=== PATIENT | female | born 1975 | race Caucasian/White ===

== ENCOUNTER → 2017-06-20 | Outpatient (CLI) | payer BC ==
[~2017-06-20] MED LIST: L.AC1CAP6 PO; None at this Time
[2017-06-20 15:35] LABS: HEMATOCRIT 41.1 % (34.6-47.8); HEMOGLOBIN 13.8 g/dL (11.7-16.4); WHITE BLOOD COUNT 7.9 x10^3/uL (3.4-10)
== END | disposition home or self-care (01) ==
LOC: STAR 14:38
PROVIDERS: ATTEND Student in an Organized Health Care Education/Training Program
DX: Z01.818 Encounter for other preprocedural examination (principal); N93.8 Other specified abnormal uterine and vaginal bleeding
CPT/HCPCS: 36415; 85025

== ENCOUNTER 2017-06-27 08:05 | Inpatient (IN) | payer BC ==
[2017-06-20 15:11] VITALS: BP 144/91
[~2017-06-27] VITALS: Ht 172.7 cm; Wt 105.7 kg
[2017-06-27] MEDS ORDERED: LACTATED RINGERS 1,000 ML IV SCH (08:32)
[2017-06-27] MEDS ORDERED: LIDOCAINE 1%, 2ML ONE (08:43)
[2017-06-27] MEDS ORDERED: MIDAZOLAM 1 MG/ML, 2ML ONE (08:56)
[2017-06-27] MEDS ORDERED: FENTANYL PF 100 MCG/2ML ONE ×2 (08:56)
[2017-06-27] MEDS ORDERED: LIDOCAINE 1%, 2ML SQ PRN (09:00)
[2017-06-27 09:06] LABS: HCG UR OBC PASS
[2017-06-27] MEDS ORDERED: DEXAMETHASONE 4 MG/ML, 1ML ONE (10:17)
[2017-06-27] MEDS ORDERED: CEFAZOLIN 1,000 MG ONE (10:17)
[2017-06-27] MEDS ORDERED: SUCCINYLCHOLINE 20 MG/ML, 10ML ONE (10:17)
[2017-06-27] MEDS ORDERED: ONDANSETRON 2MG/ML, 2ML ONE (10:17)
[2017-06-27] MEDS ORDERED: NEOSTIGMINE 1 MG/ML, 10ML ONE (10:17)
[2017-06-27] MEDS ORDERED: KETOROLAC 30 MG/1 ML ONE (10:17)
[2017-06-27] MEDS ORDERED: PROPOFOL 10 MG/ML, 20ML ONE (10:17)
[2017-06-27] MEDS ORDERED: GLYCOPYRROLATE 0.2MG/1ML ONE (10:17)
[2017-06-27] MEDS ORDERED: ROCURONIUM 10 MG/ML ONE (10:17)
[2017-06-27] MEDS ORDERED: HYDROcodone/APAP 7.5-325MG/15ML UDC PO PRN (10:30)
[2017-06-27] MEDS ORDERED: ACETAMINOPHEN 325 MG TABLET PO PRN (10:30)
[2017-06-27] MEDS ORDERED: EPHEDRINE 50 MG/ML, 1ML IVPush PRN (10:30)
[2017-06-27] MEDS ORDERED: PROMETHAZINE 25 MG/ML, 1ML IV PRN (10:30)
[2017-06-27] MEDS ORDERED: ONDANSETRON 2MG/ML, 2ML IVPush PRN (10:30)
[2017-06-27] MEDS ORDERED: METOPROLOL 1 MG/ML, 5ML IV PRN (10:30)
[2017-06-27] MEDS ORDERED: LABETALOL 5MG/ML, 20ML IV PRN (10:30)
[2017-06-27] MEDS ORDERED: OXYcodone 5 MG/5 ML ORAL.SOL UDC PO PRN (10:30)
[2017-06-27] MEDS ORDERED: ALBUTEROL SULFATE 2.5 MG/3 ML NPPB PRN (10:30)
[2017-06-27] MEDS ORDERED: MIDAZOLAM 1 MG/ML, 2ML IV PRN (10:30)
[2017-06-27] MEDS ORDERED: hydrALAzine 20 MG/ML, 1ML IV PRN (10:30)
[2017-06-27] MEDS ORDERED: MEPERIDINE/PF 25MG/0.5ML IVPush PRN (10:30)
[2017-06-27] MEDS ORDERED: BUPIVACAINE/PF-EPI 0.25% 1:200K INFIL ONE (11:08)
[2017-06-27] MEDS: FENTANYL PF 100 MCG/2ML IV PRN ×2 (14:43→14:59)
[2017-06-27] MEDS ORDERED: PROMETHAZINE 25 MG/ML, 1ML ONE (15:04)
[2017-06-27] MEDS ORDERED: HYDROmorphone 2 MG/ML, 1ML ONE (15:04)
[2017-06-27] MEDS: HYDROmorphone 1 MG/ML, 1ML IV PRN ×4 (15:06→15:38)
[2017-06-27] MEDS ORDERED: morphine SULFATE 10 MG/ML, 1ML IV PRN (16:00)
[2017-06-27] MEDS ORDERED: ONDANSETRON 2MG/ML, 2ML IV PRN (16:00)
[2017-06-27] MEDS: SIMETHICONE 80 MG CHEW TAB PO SCH ×2 (16:37→20:29)
[2017-06-27] MEDS: KETOROLAC 30 MG/1 ML IVPush SCH ×2 (16:38→21:36)
[2017-06-27] MEDS: HYDROcodone/APAP 5/325 TABLET PO PRN ×2 (18:18→22:17)
[2017-06-27 19:31] VITALS: BP 118/73
[2017-06-27] MEDS: DOCUSATE 100 MG CAPSULE PO SCH (20:29)
[2017-06-27] MEDS: LACTATED RINGERS 1,000 ML IV SCH (21:48)
[2017-06-27 23:47] VITALS: BP 116/74
[2017-06-28] MEDS: HYDROcodone/APAP 5/325 TABLET PO PRN ×3 (02:27→13:21)
[2017-06-28] MEDS: KETOROLAC 30 MG/1 ML IVPush SCH ×2 (04:04→09:58)
[2017-06-28] MEDS: LACTATED RINGERS 1,000 ML IV SCH (04:04)
[2017-06-28 04:24] VITALS: BP 125/71
[2017-06-28 08:35] VITALS: BP 105/67
[2017-06-28] MEDS: SIMETHICONE 80 MG CHEW TAB PO SCH (08:47)
[2017-06-28] MEDS: DOCUSATE 100 MG CAPSULE PO SCH (08:47)
[2017-06-28 13:24] VITALS: BP 131/84
== END 2017-06-28 15:15 | disposition home or self-care (01) | DRG 743 ==
LOC: OUT 08:05 → 4NOR 15:51 → OUT 15:54 → 4NOR 15:55 → DCLOUNGE 06-28 15:00
PROVIDERS: ADMIT Student in an Organized Health Care Education/Training Program; ATTEND Student in an Organized Health Care Education/Training Program
PROC: 0UT74ZZ Resection of Bilateral Fallopian Tubes, Percutaneous Endoscopic Approach (ICD-10-PCS; 2017-06-27)
PROC: 0UT94ZZ Resection of Uterus, Percutaneous Endoscopic Approach (ICD-10-PCS; principal; 2017-06-27 10:00)
DX: D25.1 Intramural leiomyoma of uterus (principal); E66.9 Obesity, unspecified; D64.9 Anemia, unspecified; I83.90 Asymptomatic varicose veins of unspecified lower extremity; N84.0 Polyp of corpus uteri; Z68.35 Body mass index [BMI] 35.0-35.9, adult
CPT/HCPCS: 36415; 81025; 86850; 86900; 88307; J0690; J1100; J1170; J1885; J2250; J2405; J2550; J2704; J2710; J3010; J3490; J0330; J7120